=== PATIENT | female | born 1965 | race Two or more races ===

== ENCOUNTER 2025-07-30 09:49 | Emergency (ER) | payer OTHER, SELFPAY ==
[2025-07-30 09:52] VITALS: BP 154/94
[2025-07-30 10:57] LABS: COVID-19 Antigen Negative (Negative)
--- NOTE | 2025-07-30 11:07 | ED.GENMED ---
History of Present Illness
General
Chief Complaint: Cold/Flu/URI Symptoms
Time Seen by Provider: 07/30/25 10:33
History of Present Illness
History of Present Illness:
59-year-old female presents to the emergency department for evaluation of fever and chills associated with headache, nasal congestion, and productive cough for the past 4 days. Denies chest pain or shortness of breath. No ill contacts at home.
Review of Systems
Review of Systems
Allergies reviewed?: Yes
All Other Systems: ROS reviewed and negative except as documented in HPI and ROS
Phy Exam
Physical Exam
Physical Exam:
GEN: Well appearing, NAD, WDWN
HEENT: Oral mucosa moist, no scleral icterus
Cardiac: Regular rate and rhythm, no murmurs
Lung: No respiratory distress, no tachypnea, lungs clear to auscultation
MSK: No gross deformity or injuries
Skin: Good color, no pallor or jaundice, no rashes
Neuro: AO x3, moves all extremities freely
Psych: Calm, cooperative
Course
Orders/Labs/Results
Orders:
Orders
07/30/25 10:31
COVID-19 Antigen Urgent
Source: Nasal Swab
Influenza A+B Rapid Molecular Urgent
ANDRE Source: Nasal Swab
Specimen Description:
07/30/25 10:58
Acetaminophen [Tylenol] 650 mg PO NOW STA
Vital Signs
Initial and Last Documented VS:
Initial Vital Signs
Temp Pulse Resp BP Pulse Ox
98.7 F 94 18 154/94 94
07/30/25 09:52 07/30/25 09:52 07/30/25 09:52 07/30/25 09:52 07/30/25 09:52
Last Documented Vital Signs
Temp Pulse Resp BP Pulse Ox
98.7 F 94 18 154/94 94
07/30/25 09:52 07/30/25 09:52 07/30/25 09:52 07/30/25 09:52 07/30/25 11:07
MDM/Problems Addressed
MDM/Problems Addressed:
Patient positive for influenza, she is clinically well-appearing. Unfortunately she is outside the treatment window for antivirals. No indication for chest x-ray. Discussed supportive care
*Pulse Oximetry
SaO2: 94
Oxygen Mode of Delivery: Room air
Patient hypoxic: no
*Critical Care Note
Total Time (30-74mins, 75-104mins- exclusive of procedures): Not Applicable
ED Attending Note
-
Portions of this chart may have been created with voice recognition software.� Occasional wrong word or��sound alike� substitutions may have occurred due to the inherent limitations of voice recognition software.
Discharge Plan
Departure
Patient Disposition: Home (Routine Discharge)
Date of Disposition: 07/30/25
Time of Disposition: 11:07
Patient with high blood pressure during this ER visit?: No
Discharge Problem:
Influenza
Instructions: Flu in adults - ED (DC)
Referrals:
Steffen Cameron MD [Family Provider, Internal Medicine]
Interventions
Interventions:
*Risk Screen - Suicide Last Done: 07/30/25 09:52
*General Assessment Last Done: 07/30/25 09:52
*Neglect/Abuse Screening Last Done: 07/30/25 10:31
*ED COVID-19 Vaccine History Last Done: 07/30/25 10:30
*ED Influenza Vaccine History Last Done: 07/30/25 10:30
*Nursing Disposition Last Done: 07/30/25 11:10
ED- Pulmonary Assessment Last Done: 07/30/25 10:31
Discharge Date and Time
Discharge Date/Time: 07/30/25 11:10
Print Language: CAMBODIAN
== END 2025-07-30 11:10 | disposition home or self-care (01) ==
LOC: EMR 09:49
PROVIDERS: EMERGENCY PHYSICIAN Emergency Medicine; FAMILY PHYSICIAN Internal Medicine
DX: J10.1 Influenza due to other identified influenza virus with other respiratory manifestations (principal); Z11.52 Encounter for screening for COVID-19
CPT/HCPCS: 99283; 87502; 87811